=== PATIENT | female | born 1970 | race Caucasian/White ===

== ENCOUNTER → 2016-11-25 | Outpatient (CLI) | payer MEDICAID ==
[~2016-11-25] MED LIST: ASPI-621 PO; ATOR20TA PO; CITA40TA12 PO; CITA40TA5 PO; DULO30CA2 PO; HYDR-3241 PO; METF10002 PO; PRAS10TA4 PO; REGADENOSON 0.4 MG/5 ML SYRINGE ONE
== END | disposition home or self-care (01) ==
LOC: CFH 07:28
PROVIDERS: ATTEND Internal Medicine Cardiovascular Disease
DX: I25.9 Chronic ischemic heart disease, unspecified (principal); I25.10 Atherosclerotic heart disease of native coronary artery without angina pectoris
CPT/HCPCS: 78452; 93017; A9502; J2785

== ENCOUNTER 2016-12-03 09:23 | Observation (INO) | payer MEDICAID ==
[2016-12-02 11:11] VITALS: BP 101/65
[2016-12-02 11:31] LABS: HEMATOCRIT 46.2 % (34.6-47.8); HEMOGLOBIN 15.3 g/dL (11.7-16.4); WHITE BLOOD COUNT 5.3 x10^3/uL (3.4-10)
[2016-12-02 11:47] LABS: ASPARTATE AMINO TRANSFERASE 26 U/L (15-37); BLOOD UREA NITROGEN 17 mg/dL (7-18)
[~2016-12-03] VITALS: Ht 162.6 cm; Wt 128.6 kg
[~2016-12-03 09:23] MED LIST changes: +BUPR1PAT3 TD; +CLOP75TA PO; +DULO60CA7 PO; +METH750T87 PO; -REGADENOSON 0.4 MG/5 ML SYRINGE ONE; +VITA1TAB19 PO
[2016-12-03] MEDS ORDERED: SODIUM CHLORIDE 0.9% 1,000 ML IV SCH (10:03)
[2016-12-03] MEDS ORDERED: ATOR20TA PO (10:18)
[2016-12-03] MEDS ORDERED: ASPI-621 PO (10:18)
[2016-12-03] MEDS ORDERED: FENTANYL PF 100 MCG/2ML ONE (13:15)
[2016-12-03] MEDS ORDERED: MIDAZOLAM 1 MG/ML, 5ML ONE (13:15)
[2016-12-03] MEDS ORDERED: BIVALIRUDIN 250 MG ONE (13:15)
[2016-12-03] MEDS ORDERED: VERAPAMIL 2.5 MG/ML, 2ML ONE (13:15)
[2016-12-03] MEDS ORDERED: LIDOCAINE 2%, 20ML ONE (13:15)
[2016-12-03] MEDS ORDERED: HEPARIN 1,000 UNITS/ML, 10ML ONE (13:15)
[2016-12-03] MEDS ORDERED: TICAGRELOR 90 MG TABLET ONE (13:15)
[2016-12-03] MEDS: SODIUM CHLORIDE 0.9% 1,000 ML IV SCH ×2 (18:19→22:29)
[2016-12-03] MEDS ORDERED: METHOCARBAMOL 750 MG TABLET PO PRN (19:00)
[2016-12-03 19:19] VITALS: BP 115/79
[2016-12-03] MEDS ORDERED: ATORVASTATIN 40 MG TABLET PO SCH (21:00)
[2016-12-03] MEDS ORDERED: ZOLPIDEM 5MG TABLET PO PRN (23:30)
[2016-12-03] MEDS ORDERED: ONDANSETRON 2MG/ML, 2ML IVPush PRN (23:30)
[2016-12-03] MEDS ORDERED: ACETAMINOPHEN 325 MG TABLET PO PRN (23:30)
[2016-12-04 01:16] VITALS: BP 96/60
[2016-12-04] MEDS: SODIUM CHLORIDE 0.9% 1,000 ML IV SCH (06:29)
[2016-12-04 08:05] VITALS: BP 94/60
[2016-12-04] MEDS ORDERED: CLOPIDOGREL 75 MG TABLET PO SCH (09:00)
[2016-12-04] MEDS ORDERED: DULOXETINE 30 MG CAPSULE.DR PO SCH (09:00)
[2016-12-04] MEDS ORDERED: ASPIRIN 81 MG TABLET EC PO SCH (09:00)
[2016-12-04] MEDS ORDERED: MULTIVITS,STRESS FORMULA 1 TABLET PO SCH (09:00)
== END 2016-12-04 10:38 | disposition home or self-care (01) ==
LOC: CACL 09:23 → 5SO 14:43 → CACL 23:11 → DCLOUNGE 12-04 10:24
PROVIDERS: ADMIT Internal Medicine Cardiovascular Disease; ATTEND Internal Medicine Cardiovascular Disease
DX: I25.10 Atherosclerotic heart disease of native coronary artery without angina pectoris (principal); R06.02 Shortness of breath; I10 Essential (primary) hypertension; E78.5 Hyperlipidemia, unspecified; G47.30 Sleep apnea, unspecified
CPT/HCPCS: 36415; 80053; 85025; 85610; 85730; 93458; 99156; 99157; C1725; C1769; C1874; C1887; C1894; C9600; G0378; J0583; J1644; J2250; J3010; J3490; J7030; Q9967

== ENCOUNTER 2016-12-12 05:45 | Observation (INO) | payer MEDICAID ==
[~2016-12-12] VITALS: Ht 162.6 cm; Wt 126.6 kg
[2016-12-12] MEDS ORDERED: NITROGLYCERIN SINGLE TAB 0.4 MG SL PRN ×2 (06:30→10:00)
[2016-12-12] MEDS ORDERED: SODIUM CHLORIDE FLUSH 10ML SYR IVF ONE (06:30)
[2016-12-12] MEDS ORDERED: ASPIRIN 81 MG TABLET CHEW PO ONE (06:30)
[2016-12-12] MEDS ORDERED: NITROGLYCERIN SINGLE TAB 0.4 MG SL ONE (06:36)
[2016-12-12] MEDS ORDERED: ASPIRIN 81 MG TABLET CHEW ONE (06:37)
[2016-12-12 06:38] LABS: HEMATOCRIT 43.3 % (34.6-47.8); HEMOGLOBIN 14.2 g/dL (11.7-16.4); WHITE BLOOD COUNT 5.9 x10^3/uL (3.4-10)
[2016-12-12 06:45] LABS: BLOOD UREA NITROGEN 21 mg/dL (7-18)
[2016-12-12] MEDS ORDERED: ONDANSETRON 2MG/ML, 2ML ONE (06:59)
[2016-12-12] MEDS ORDERED: MORPHINE SULFATE 4 MG/ML, 1ML ONE (06:59)
[2016-12-12] MEDS ORDERED: MORPHINE SULFATE 4 MG/ML, 1ML IVPush PRN (07:00)
[2016-12-12] MEDS ORDERED: ONDANSETRON 2MG/ML, 2ML IVPush ONE (07:00)
[2016-12-12] MEDS ORDERED: SODIUM CHLORIDE 0.9% 1,000ML IVBOLUS ONE (07:00)
[2016-12-12] MEDS ORDERED: SODIUM CHLORIDE FLUSH 10ML SYR IVF PRN (08:00)
[2016-12-12] MEDS ORDERED: morphine SULFATE 10 MG/ML, 1ML IV PRN (10:00)
[2016-12-12] MEDS ORDERED: ENOXAPARIN 40 MG/0.4 ML SQ SCH (10:00)
[2016-12-12] MEDS ORDERED: ENOXAPARIN 40 MG/0.4 ML ONE (10:04)
[2016-12-12 10:25] LABS: IS PT STATUS REG ER OR PRE ER? YES
[2016-12-12 15:11] VITALS: BP_SYST 81; BP_SYST 84; BP_DIAS 52; BP_DIAS 54
[2016-12-12] MEDS ORDERED: SODIUM CHLORIDE FLUSH 10ML SYR IVF SCH (21:00)
[2016-12-13] MEDS ORDERED: ASPIRIN 325 MG TABLET EC PO SCH (06:00)
== END 2016-12-12 17:00 | disposition home or self-care (01) ==
LOC: ED 06:18 → INTOOBSV 07:32 → EDIP 07:32 → 5SO 10:55 → DCLOUNGE 16:51
PROVIDERS: ADMIT Internal Medicine; ATTEND Internal Medicine
DX: R07.89 Other chest pain (principal); G89.29 Other chronic pain; M54.9 Dorsalgia, unspecified; E44.1 Mild protein-calorie malnutrition; E78.5 Hyperlipidemia, unspecified; E11.9 Type 2 diabetes mellitus without complications; F32.9 Major depressive disorder, single episode, unspecified; F41.9 Anxiety disorder, unspecified; G47.33 Obstructive sleep apnea (adult) (pediatric); I25.110 Atherosclerotic heart disease of native coronary artery with unstable angina pectoris; Z79.02 Long term (current) use of antithrombotics/antiplatelets; Z79.82 Long term (current) use of aspirin; Z79.899 Other long term (current) drug therapy; Z87.891 Personal history of nicotine dependence; Z95.5 Presence of coronary angioplasty implant and graft; Z98.84 Bariatric surgery status; Z82.3 Family history of stroke; Z82.49 Family history of ischemic heart disease and other diseases of the circulatory system; Z83.3 Family history of diabetes mellitus
CPT/HCPCS: 36415; 71010; 80048; 82040; 83880; 84484; 85025; 85610; 85730; 93005; 93017; 96361; 96372; 96374; 96375; 99285; G0378; J1650; J2405; J7030

== ENCOUNTER → 2017-11-30 | Outpatient (CLI) | payer MEDICAID ==
[~2017-11-30] MED LIST changes: -BUPR1PAT3 TD; +BUPR1PAT6 TD; +REGADENOSON 0.4 MG/5 ML SYRINGE ONE
== END | disposition home or self-care (01) ==
LOC: CFH 11:55
PROVIDERS: ATTEND Internal Medicine Cardiovascular Disease
DX: I25.10 Atherosclerotic heart disease of native coronary artery without angina pectoris (principal); Z95.5 Presence of coronary angioplasty implant and graft; E78.5 Hyperlipidemia, unspecified; E11.9 Type 2 diabetes mellitus without complications; Z87.891 Personal history of nicotine dependence
CPT/HCPCS: 78452; 93017; A9502; J2785

== ENCOUNTER → 2018-10-15 | Outpatient (CLI) | payer MEDICAID ==
[~2018-10-15] MED LIST changes: +ALLO300T PO; +ASPI-496 PO; -ASPI-621 PO; +ASPI81TA45 PO; +ATOR20TA37 PO; +METF500T27 PO; +POTA10TA17 PO; -REGADENOSON 0.4 MG/5 ML SYRINGE ONE
== END | disposition home or self-care (01) ==
LOC: STAR 13:53
PROVIDERS: ATTEND Student in an Organized Health Care Education/Training Program
DX: Z01.818 Encounter for other preprocedural examination (principal); N20.0 Calculus of kidney
CPT/HCPCS: 93005

== ENCOUNTER 2018-10-19 14:17 | Outpatient (CLI) | payer MEDICAID | END 2018-10-19 23:59 | disposition home or self-care (01) | LOC: RAD 14:17 | PROVIDERS: ATTEND Student in an Organized Health Care Education/Training Program | DX: N20.0 Calculus of kidney (principal) | CPT/HCPCS: 74018 ==

== ENCOUNTER 2018-10-20 11:48 | Day surgery (SDC) | payer MEDICAID ==
[~2018-10-20] VITALS: Ht 162.6 cm; Wt 121.6 kg
[2018-10-20] MEDS ORDERED: LACTATED RINGERS 1,000 ML IV SCH (12:19)
[2018-10-20 12:24] VITALS: BP 122/76
[2018-10-20] MEDS ORDERED: MIDAZOLAM 1 MG/ML, 2ML ONE (12:29)
[2018-10-20] MEDS ORDERED: KETOROLAC 30 MG/1 ML ONE (12:29)
[2018-10-20] MEDS ORDERED: FENTANYL PF 250 MCG/5ML ONE (12:29)
[2018-10-20] MEDS ORDERED: CEFAZOLIN 1,000 MG ONE ×2 (12:33→13:52)
[2018-10-20] MEDS ORDERED: NEOSTIGMINE 1 MG/ML, 10ML ONE (12:33)
[2018-10-20] MEDS ORDERED: PROPOFOL 10 MG/ML, 20ML ONE (12:33)
[2018-10-20] MEDS ORDERED: ONDANSETRON 2MG/ML, 2ML ONE (12:33)
[2018-10-20] MEDS ORDERED: DEXAMETHASONE 4 MG/ML, 1ML ONE (12:33)
[2018-10-20] MEDS ORDERED: GLYCOPYRROLATE 0.2MG/1ML, 5ML ONE (12:33)
[2018-10-20] MEDS ORDERED: ROCURONIUM 10MG/ML,5ML ONE (12:33)
[2018-10-20] MEDS ORDERED: PROMETHAZINE 25 MG/ML, 1ML IM PRN ×2 (14:00)
[2018-10-20] MEDS ORDERED: MORPHINE SULFATE 4 MG/ML, 1ML IVPush PRN (14:00)
[2018-10-20] MEDS ORDERED: PROMETHAZINE 25 MG SUPP PR PRN (14:00)
[2018-10-20] MEDS ORDERED: hydrALAzine 20 MG/ML, 1ML IV PRN (14:00)
[2018-10-20] MEDS ORDERED: OXYcodone 5 MG/5 ML ORAL.SOL UDC PO PRN (14:00)
[2018-10-20] MEDS ORDERED: PROMETHAZINE 25 MG/ML, 1ML IV PRN (14:00)
[2018-10-20] MEDS ORDERED: LABETALOL 5MG/ML, 20ML IV PRN (14:00)
[2018-10-20] MEDS ORDERED: PROMETHAZINE 12.5 MG SUPP PR PRN (14:00)
[2018-10-20] MEDS ORDERED: MEPERIDINE/PF 25MG/0.5ML IVPush PRN (14:00)
[2018-10-20] MEDS ORDERED: ONDANSETRON ODT 8 MG PO PRN (14:00)
[2018-10-20] MEDS ORDERED: ACETAMINOPHEN 325 MG TABLET PO PRN (14:00)
[2018-10-20] MEDS ORDERED: HYDROmorphone 2 MG/ML, 1ML IVPush PRN (14:00)
[2018-10-20] MEDS ORDERED: HALOPERIDOL 5 MG/ML IV PRN (14:00)
[2018-10-20] MEDS ORDERED: ONDANSETRON 2MG/ML, 2ML IV PRN (14:00)
[2018-10-20] MEDS ORDERED: FENTANYL PF 100 MCG/2ML IV PRN (14:00)
[2018-10-20] MEDS ORDERED: HYDROmorphone 2 MG/ML, 1ML ONE (15:16)
[2018-10-20] MEDS ORDERED: OXYcodone 5 MG/5 ML ORAL.SOL UDC ONE (15:16)
[2018-10-20] MEDS ORDERED: FENTANYL PF 100 MCG/2ML ONE (15:16)
== END 2018-10-20 18:55 | disposition home or self-care (01) ==
LOC: OUT 11:48
PROVIDERS: ATTEND Student in an Organized Health Care Education/Training Program
DX: N20.0 Calculus of kidney (principal); E11.9 Type 2 diabetes mellitus without complications; E66.9 Obesity, unspecified; E78.5 Hyperlipidemia, unspecified; G47.33 Obstructive sleep apnea (adult) (pediatric); I25.10 Atherosclerotic heart disease of native coronary artery without angina pectoris; M10.9 Gout, unspecified; Z79.82 Long term (current) use of aspirin; Z79.02 Long term (current) use of antithrombotics/antiplatelets; Z79.84 Long term (current) use of oral hypoglycemic drugs; Z79.899 Other long term (current) drug therapy; Z87.891 Personal history of nicotine dependence; Z90.710 Acquired absence of both cervix and uterus; Z87.442 Personal history of urinary calculi; Z90.49 Acquired absence of other specified parts of digestive tract; Z95.5 Presence of coronary angioplasty implant and graft; Z98.84 Bariatric surgery status; Z98.890 Other specified postprocedural states
CPT/HCPCS: 50590; 82962; J0690; J1100; J1170; J1885; J2250; J2405; J2704; J2710; J3010; J7120

== ENCOUNTER 2018-11-29 08:07 | Outpatient (CLI) | payer MEDICAID ==
[~2018-11-29 08:07] MED LIST changes: +REGADENOSON 0.4 MG/5 ML SYRINGE ONE
== END 2018-11-29 23:59 | disposition home or self-care (01) ==
LOC: CFH 08:07
PROVIDERS: ATTEND Internal Medicine Cardiovascular Disease
DX: I25.10 Atherosclerotic heart disease of native coronary artery without angina pectoris (principal)
CPT/HCPCS: 78452; 93017; A9502; J2785

== ENCOUNTER 2020-04-30 02:18 | Inpatient (IN) | payer BC, MEDICAID ==
[~2020-04-30] VITALS: Ht 162.6 cm; Wt 118.4 kg
[~2020-04-30 02:18] MED LIST changes: -REGADENOSON 0.4 MG/5 ML SYRINGE ONE
--- NOTE | 2020-04-30 02:49 | NUR ---
assessment made. PA at bedside.
[2020-04-30] MEDS ORDERED: ASPIRIN 81 MG TABLET CHEW PO ONE (03:00)
--- NOTE | 2020-04-30 03:00 | NUR ---
X ray done. chemical laboratory tester at bedside.
[2020-04-30 03:26] LABS: BASOPHILS % (AUTO) 2 % (0-1); EOSINOPHILS % (AUTO) 7 % (1-7); LYMPHOCYTES % (AUTO) 32 % (22-44); MEAN CORPUSCULAR HEMOGLOBIN 29.9 pg (27.0-34.8); MEAN CORPUSCULAR HGB CONC 33.2 g/dL (32.4-35.8); MEAN PLATELET VOLUME 9.6 fL (7.4-10.4); MONOCYTES % (AUTO) 7 % (2-9); NEUTROPHILS % (AUTO) 52 % (42-75); PLATELET COUNT 187 x10^3/uL (130-400); RED BLOOD COUNT 4.67 x10^6/uL (3.82-5.3); RED CELL DISTRIBUTION WIDTH 13.9 % (9.6-15.2)
[2020-04-30] MEDS ORDERED: ASPIRIN 81 MG TABLET CHEW ONE (03:28)
[2020-04-30 03:29] LABS: MD NO
[2020-04-30 03:58] LABS: ALBUMIN 3.3 g/dL (3.4-5.0); ANION GAP 4 mmol/L (5-15); CALCIUM 8.7 mg/dL (8.5-10.1); CHLORIDE 110 mmol/L (98-107); CREATININE 0.92 mg/dL (0.55-1.02)
[2020-04-30 04:01] LABS: TROPONIN I < 0.015 ng/mL (0.000-0.045)
--- NOTE | 2020-04-30 04:23 | NUR ---
ERP at bedside for re-evaluation.
--- NOTE | 2020-04-30 04:32 | NUR ---
patient for admit. states still having discomfort on her right chest.
[2020-04-30 05:59] VITALS: BP 122/82
[2020-04-30] MEDS ORDERED: ACETAMINOPHEN 325 MG TABLET PO PRN (06:00)
[2020-04-30] MEDS ORDERED: morphine SULFATE 10 MG/ML, 1ML IV PRN (06:00)
[2020-04-30] MEDS ORDERED: hydrALAzine 20 MG/ML, 1ML IVPush PRN (06:00)
[2020-04-30] MEDS ORDERED: ONDANSETRON 2MG/ML, 2ML IVPush PRN (06:00)
[2020-04-30 06:52] VITALS: BP 117/73
[2020-04-30 09:43] LABS: TROPONIN I < 0.015 ng/mL (0.000-0.045)
[2020-04-30] MEDS: ALLOPURINOL 300 MG TABLET PO SCH (09:51)
[2020-04-30] MEDS: ASPIRIN 81 MG TABLET EC PO SCH (09:51)
[2020-04-30] MEDS: CLOPIDOGREL 75 MG TABLET PO SCH (09:51)
[2020-04-30] MEDS: DULOXETINE 30 MG CAPSULE.DR PO SCH (09:51)
[2020-04-30] MEDS ORDERED: SODIUM CHLORIDE 0.9% 1,000 ML IV SCH (11:00)
[2020-04-30] MEDS ORDERED: DIPHENHYDRAMINE 50 MG/ML, 1ML IVPush PRN (12:00)
[2020-04-30] MEDS: methylPREDNISolone SOD SUCC 125 MG/2 ML IVPush SCH (12:29)
[2020-04-30 12:52] VITALS: BP 133/82
[2020-04-30 13:12] LABS: TROPONIN I < 0.015 ng/mL (0.000-0.045)
[2020-04-30] MEDS ORDERED: LIDOCAINE-MPF 1%, 5ML ONE (16:23)
[2020-04-30] MEDS ORDERED: BIVALIRUDIN 250 MG ONE (16:23)
[2020-04-30] MEDS ORDERED: FENTANYL PF 100 MCG/2ML ONE (16:23)
[2020-04-30] MEDS ORDERED: MIDAZOLAM 1 MG/ML, 5ML ONE (16:23)
[2020-04-30] MEDS ORDERED: VERAPAMIL 2.5 MG/ML, 2ML ONE (16:23)
[2020-04-30] MEDS ORDERED: HEPARIN 1,000 UNITS/ML, 10ML ONE (16:23)
[2020-04-30] MEDS ORDERED: methylPREDNISolone SOD SUCC 125 MG/2 ML ONE ×2 (17:10→17:12)
[2020-04-30] MEDS ORDERED: DIPHENHYDRAMINE 50 MG/ML, 1ML ONE (17:10)
[2020-04-30] MEDS ORDERED: ONDANSETRON 2MG/ML, 2ML ONE (17:18)
[2020-04-30] MEDS: SODIUM CHLORIDE 0.9% 1,000 ML IV SCH ×2 (18:03→19:43)
[2020-04-30 18:15] VITALS: BP 103/63
[2020-04-30] MEDS ORDERED: ATORVASTATIN 20 MG TABLET PO SCH (21:00)
[2020-04-30 23:31] VITALS: BP 101/69
[2020-05-01 07:28] VITALS: BP 93/69
[2020-05-01] MEDS: ASPIRIN 81 MG TABLET EC PO SCH (08:10)
[2020-05-01] MEDS: ALLOPURINOL 300 MG TABLET PO SCH (08:10)
[2020-05-01] MEDS: CLOPIDOGREL 75 MG TABLET PO SCH (08:10)
[2020-05-01] MEDS: DULOXETINE 30 MG CAPSULE.DR PO SCH (08:14)
[2020-05-01] MEDS: methylPREDNISolone SOD SUCC 125 MG/2 ML IVPush SCH (08:59)
== END 2020-05-01 09:46 | disposition home or self-care (01) | DRG 287 ==
LOC: ED 03:29 → EDIP 04:56 → INTOOBSV 04:56 → OBSVTOIN 04:56 → 5SO 05:57 → DCLOUNGE 05-01 09:41
PROVIDERS: ADMIT Family Medicine; ATTEND Internal Medicine
PROC: 4A023N7 Measurement of Cardiac Sampling and Pressure, Left Heart, Percutaneous Approach (ICD-10-PCS; principal; 2020-04-30)
PROC: B2111ZZ Fluoroscopy of Multiple Coronary Arteries using Low Osmolar Contrast (ICD-10-PCS; 2020-04-30)
PROC: B2151ZZ Fluoroscopy of Left Heart using Low Osmolar Contrast (ICD-10-PCS; 2020-04-30)
DX: T82.855A Stenosis of coronary artery stent, initial encounter (principal); I25.110 Atherosclerotic heart disease of native coronary artery with unstable angina pectoris; Z68.41 Body mass index [BMI] 40.0-44.9, adult; E11.9 Type 2 diabetes mellitus without complications; E66.01 Morbid (severe) obesity due to excess calories; E78.5 Hyperlipidemia, unspecified; F32.9 Major depressive disorder, single episode, unspecified; F41.9 Anxiety disorder, unspecified; G47.33 Obstructive sleep apnea (adult) (pediatric); G89.29 Other chronic pain; Y84.0 Cardiac catheterization as the cause of abnormal reaction of the patient, or of later complication, without mention of misadventure at the time of the procedure; I10 Essential (primary) hypertension; Z82.3 Family history of stroke; Z82.49 Family history of ischemic heart disease and other diseases of the circulatory system; Z83.3 Family history of diabetes mellitus; Z87.442 Personal history of urinary calculi; Z87.891 Personal history of nicotine dependence; Z90.710 Acquired absence of both cervix and uterus; Z95.5 Presence of coronary angioplasty implant and graft; Z98.84 Bariatric surgery status; Y92.89 Other specified places as the place of occurrence of the external cause; Z90.49 Acquired absence of other specified parts of digestive tract; Z79.899 Other long term (current) drug therapy
CPT/HCPCS: 36415; 71045; 80048; 82040; 83036; 84443; 84484; 85025; 93005; 93017; 93454; 99156; 99157; C1769; C1894; G0378; J0583; J1644; J2250; J2405; J3010; J1200; J2930; J7030; Q9967